=== PATIENT | female | born 1990 | race Caucasian/White ===

== ENCOUNTER 2016-04-15 09:20 | Emergency (ER) | payer BC ==
[~2016-04-15] VITALS: Ht 165.1 cm; Wt 78.0 kg
[~2016-04-15 09:20] MED LIST: ACET1TAB40 PO; CLIN-73 PO; GENT5DRO28 LEFT EYE
[2016-04-15 09:26] VITALS: Ht 165.1 cm; Wt 78.0 kg
[2016-04-15] MEDS ORDERED: SOD CHLORIDE 0.9% 1,000 ML IV STA (10:02)
--- NOTE | 2016-04-15 10:06 | ERD ---
ER Documentation Chief Complaint Date/Time DATE: 04/15/16 Chief Complaint Dysuria HPI The patient is a 25-year-old female who presents to the Emergency Department with complaint of dysuria and left flank pain. She reports that 2 days ago she had gradual onset of left-sided flank pain, dysuria, urinary frequency, urinary urgency and hesitancy. Yesterday, she began to experience tactile fevers and chills, with nausea and one episode of nonbilious, nonbloody emesis. She denies any current nausea, or any further episodes of vomiting. Denies any diarrhea. Denies any black or bloody stools. Denies any dyspareunia or new vaginal discharge. She rates her current pain as 6 out of 10. It is localized to the left flank and suprapubic region of the abdomen. It is pressure-like in nature and does not radiate. The pain is improved with rest, and worsened with palpation and movement. She denies hematuria, or any history of stones. Denies vaginal bleeding. Her last menstrual period ended yesterday. ROS All systems reviewed and are negative except as per history of present illness. Medications Home Meds Active Scripts Acetaminophen* (Tylenol*) 325 Mg Tablet, 1 TAB PO Q6 Y for PAIN AND OR ELEVATED TEMP, #20 TAB Prov:KAMI REDMOND PA-C 04/15/16 Phenazopyridine Hcl* (Pyridium*) 200 Mg Tab, 200 MG PO TID Y for URINARY PAIN for 2 Days, #6 TAB Prov:KAMI REDMOND PA-C 04/15/16 Cephalexin* (Cephalexin*) 500 Mg Capsule, 500 MG PO Q6 for 10 Days, CAP Prov:KAMI REDMOND PA-C 04/15/16 Acetaminophen-Codeine* (Acetaminophen-Cod #3*) 300-30 Mg Tab, 1 TAB PO Q4H Y for PAIN, #10 TAB Prov:ANDREW ALDRICH MD 05/22/15 Clindamycin Hcl* (Clindamycin Hcl*) 300 Mg Capsule, 300 MG PO QID for 7 Days, CAP Prov:ANDREW ALDRICH MD 05/22/15 Gentamicin Sulfate* (Gentamicin Sulfate* Ophth) 0.3% - 5 Ml Drops, 1 DROP LEFT EYE Q4 for 7 Days, EA Prov:ANDREW ALDRICH MD 05/22/15 Allergies Allergies: Coded Allergies: Penicillins (Verified Allergy, Unknown, 05/22/15) Sulfa (Sulfonamide Antibiotics) (Verified Allergy, Unknown, 05/22/15) ibuprofen (Verified Allergy, Unknown, 05/22/15) PMhx/Soc History of Surgery: Yes (BREAST AUGMENTATION ) Hx Alcohol Use: Yes (SOCIALLY ) Hx Substance Use: No Hx Tobacco Use: No Physical Exam Vitals Vital Signs Date Time Temp Pulse Resp B/P Pulse Ox O2 Delivery O2 Flow Rate FiO2 04/15/16 09:26 98.5 118 18 118/74 96 Physical Exam GENERAL: Well-developed, well-nourished, in no acute distress HEENT: Head is normocephalic, atraumatic. No scleral pallor or icterus. Pupils equal, round and reactive to light. Conjunctiva pink. Moist mucous membranes. NECK: Supple. Trachea midline. Full range of motion. RESPIRATORY: Lungs are clear to auscultation bilaterally. Equal breath sounds. Normal expiratory effort. CARDIOVASCULAR: Tachycardic. Regular rhythm. S1 and S2 normal. GASTROINTESTINAL: Abdomen is soft and non-distended. Tenderness to palpation over the suprapubic abdomen. No guarding, no rebound tenderness. Normal bowel sounds. No abdominal bruits. No gross peritonitis. No masses or organomegaly. FLANK: Left-sided CVA tenderness. No masses palpated. No right-sided CVA tenderness. No vesicles/lesions/rashes. BACK: No midline tenderness. EXTREMITIES: No clubbing, cyanosis, or edema. Normal skin perfusion. Moving all extremities. Muscle tone is normal. No focal swelling or erythema. Distal pulses are palpable, 2+ bilaterally. Capillary refill is less than 2 seconds. NEUROLOGIC: The patient is alert, awake, and oriented x 3. No focal neurologic deficits. Gait is observed and normal. There is no ataxia. Speech is normal. INTEGUMENT: Skin is clean, dry and intact. No rashes, lesions or petechiae present. Normal turgor. PSYCHIATRIC: Appropriate; Cooperative. Result Diagram: 04/15/16 1000 04/15/16 1000 Results 24 hrs Laboratory Tests Test 04/15/16 10:00 Alanine Aminotransferase (ALT/SGPT) 69IU/L Albumin 4.2g/dl Albumin/Globulin Ratio 1.07 Alkaline Phosphatase 120IU/L Anion Gap 17 Aspartate Amino Transf (AST/SGOT) 35IU/L Basophils # 0.010^3/ul Basophils % 0.1% Blood Urea Nitrogen 7mg/dl Calcium Level 8.4mg/dl Carbon Dioxide Level 28mmol/L Chloride Level 97mmol/L Creatinine 0.71mg/dl Differential Comment AUTO w/SCAN Direct Bilirubin 0.00mg/dl Eosinophils # 0.010^3/ul Eosinophils % 0.0% Globulin 3.90g/dl Glucose Level 127mg/dl Hematocrit 41.3% Hemoglobin 13.9g/dl Indirect Bilirubin 0.9mg/dl Lipase 26U/L Lymphocytes # 1.710^3/ul Lymphocytes % 8.4% Mean Corpuscular Hemoglobin 30.3pg Mean Corpuscular Hemoglobin Concent 33.6g/dl Mean Corpuscular Volume 90.3fl Mean Platelet Volume 9.1fl Monocytes # 1.110^3/ul Monocytes % 5.4% Neutrophils # 17.110^3/ul Neutrophils % 86.1% Nucleated Red Blood Cells # 0.010^3/ul Nucleated Red Blood Cells % 0.0/100WBC Platelet Count 38817^3/UL Potassium Level 3.4mmol/L Red Blood Count 4.5710^6/ul Red Cell Distribution Width 13.1% Sodium Level 139mmol/L Total Bilirubin 0.9mg/dl Total Protein 8.1g/dl Urine Bacteria MODERATE Urine Bilirubin NEGATIVE Urine Clarity CLEAR Urine Color LT. YELLOW Urine Glucose NEGATIVE% Urine Hemoglobin 3+ Urine Ketones NEGATIVE Urine Leukocyte Esterase 3+ Urine Microscopic RBC 5-10/HPF Urine Microscopic WBC 25-50/HPF Urine Nitrite POSITIVE Urine Specific [place] 1.010 Urine Squamous Epithelial Cells FEW Urine Total Protein 2+ Urine Urobilinogen 0.2 E.U./dL Urine pH 6.0 White Blood Count 19.910^3/ul Current Medications Medications (Trade) Dose Ordered Sig/Maria Elena Route PRN Reason Start Time Stop Time Status Last Admin Dose Admin Sodium Chloride (NS) 1,000 ml @ 1,000 mls/hr Q1H STAT IV 04/15/16 10:02 04/15/16 11:01 DC 04/15/16 10:07 Acetaminophen 650 mg 650 mg ONCE ONCE PO 04/15/16 10:30 04/15/16 10:31 DC 04/15/16 10:07 Ceftriaxone Sodium (Rocephin) 50 ml @ 100 mls/hr ONCE ONCE IVPB 04/15/16 11:00 04/15/16 11:29 DC 04/15/16 10:49 Ondansetron HCl (Zofran Inj) 4 mg ONCE STAT IV 04/15/16 10:52 04/15/16 10:54 DC Procedures/MDM Emergency Department Course: The patient was stable throughout the ER course. Laboratory work was performed. On reassessment, the patient was sitting comfortably with no signs of acute distress. Laboratory results were discussed with the patient, as well as likely diagnosis of pyelonephritis. She was given an injection of 1 g of Rocephin IV, and strict return precautions for signs of worsening condition. The patient's case was discussed with ED supervising physician, Dr. Scott, including patient's presentation, ED course, laboratory values and urinalysis results. Given that the patient is nontoxic in appearance, with no significant immunocompromised state and tolerating POs, he states that patient may be discharged home with antibiotics to follow up as an outpatient. Medical Decision Making: This is a 25-year-old female presenting to the Emergency Department with dysuria, urinary frequency, urgency, hesitancy and left flank pain. On physical examination, the patient had mild tenderness to palpation over the suprapubic abdomen. She had left-sided CVA tenderness. Otherwise, she was nontoxic in appearance, with no evidence of dehydration. She was afebrile. The differential diagnosis includes, but is not limited to, urinary tract infection, renal abscess, perinephric abscess, urethritis, nephrolithiasis, salpingitis, cervicitis, pelvic inflammatory disease, diverticulitis, cystitis, cholecystitis, appendicitis, abdominal aortic aneurysm /dissection, pyelonephritis. Laboratory analysis revealed leukocytosis of 19.9 . No severe anemia requiring transfusion. Electrolytes are within normal limits, no indication for replacement. BUN/creatinine and creatinine are normal , no prerenal azotemia or acute kidney injury. No transaminitis. Urinalysis revealed positive nitrites, 3+ urine leukocyte esterase, 3+ urine hemoglobin, consistent with an infection. Given that the patient presented with recent fevers, chills, dysuria and CVA tenderness, patient's symptoms are most consistent with acute pyelonephritis. She was given an injection of 1 g of Rocephin IV. Urine culture sent. After rest, and administration of medications and serial evaluations, the patient reports no new complaints. She continues to remain stable and nontoxic, with no signs of distress. No significant immunocompromised state, no severe sepsis, no evidence of emphysematous pyelonephritis. The patient is tolerating POs. At this time, the patient is in stable condition, and therefore can be discharged home with a prescription for Keflex, Pyridium, and Tylenol and strict return precautions for signs of deteriorating or worsening condition. The patient is advised to follow up with her primary care provider within 1-2 days for reevaluation and further management, or return to the ER sooner for any worsening symptoms. I shared all laboratory results, medical decision making and plan with the patient at length and in great detail, and the patient verbally understands and agrees with the plan for further observation and care as an outpatient. At the time of discharge, all questions were answered. Departure Diagnosis: Primary Impression: Acute pyelonephritis Additional Impression: Left flank pain Condition: Stable Patient Instructions: Pyelonephritis, Pyelonephritis, Female (Adult) Additional Instructions: Follow up with your primary medical provider in 1-2 days for reevaluation and further management. Return to the ED sooner for any new or worsening symptoms. KAMI REDMOND PA-C Apr 15, 2016 10:06
[2016-04-15 10:25] LABS: BASOPHILS % 0.1 % (0.0-2.0); HEMATOCRIT 41.3 % (37.0-47.0); HEMOGLOBIN 13.9 g/dl (12.0-16.0); LYMPHOCYTES # 1.7 10^3/ul (0.8-2.9); LYMPHOCYTES % 8.4 % (15.0-51.0); MEAN CORPUSCULAR HEMOGLOBIN 30.3 pg (29.0-33.0); MEAN CORPUSCULAR HGB CONC 33.6 g/dl (32.0-37.0); MEAN CORPUSCULAR VOLUME 90.3 fl (82.0-101.0); MEAN PLATELET VOLUME 9.1 fl (7.4-10.4); MONOCYTE # 1.1 10^3/ul (0.3-0.9); MONOCYTES % 5.4 % (0.0-11.0); NEUTROPHIL # 17.1 10^3/ul (1.6-7.5); NEUTROPHILS % 86.1 % (39.0-77.0); PLATELET COUNT 214 10^3/UL (140-440); RED BLOOD COUNT 4.57 10^6/ul (4.20-5.40); RED CELL DISTRIBUTION WIDTH 13.1 % (11.5-14.5); UNCORRECTED WBC 19.9 10^3/ul (4.8-10.8); WHITE BLOOD COUNT 19.9 10^3/ul (4.8-10.8)
[2016-04-15 10:27] LABS: ADD UMIC YES; URINE BILIRUBIN (Dip) NEGATIVE (NEGATIVE); URINE BLOOD (Dip) 3+ (NEGATIVE); URINE COLOR LT. YELLOW (YELLOW); URINE GLUCOSE (Dip) NEGATIVE (NEGATIVE); URINE KETONES (Dip) NEGATIVE (NEGATIVE); URINE LEUKOCYTE ESTERASE (Dip) 3+ (NEGATIVE); URINE NITRITE (Dip) POSITIVE (NEGATIVE); URINE TOTAL PROTEIN (Dip) 2+ (NEGATIVE); URINE UROBILINOGEN (Dip) 0.2 E.U./dL (0.1-1.0)
[2016-04-15] MEDS ORDERED: ACETAMINOPHEN 325 MG TAB PO ONE (10:30)
[2016-04-15 10:33] LABS: CONDITION 1; LH ANALYZER COMMENTS 1; SUSPECT 1
[2016-04-15 10:36] LABS: ALBUMIN 4.2 g/dl (3.3-4.9)
[2016-04-15 10:37] LABS: POTASSIUM 3.4 mmol/L (3.5-5.1)
[2016-04-15 10:39] LABS: ALBUMIN/GLOBULIN RATIO 1.07; BACTERIA,URINE MODERATE; BILIRUBIN,INDIRECT 0.9 mg/dl (0-1.1); BILIRUBIN,TOTAL 0.9 mg/dl (0.2-1.3); CREATININE 0.71 mg/dl (0.44-1.00); TOTAL PROTEIN 8.1 g/dl (6.1-8.1)
[2016-04-15 10:40] LABS: CALCIUM 8.4 mg/dl (8.4-10.2); SQUAMOUS EPITHELIAL CELL,UR FEW
[2016-04-15] MEDS ORDERED: ONDANSETRON 4 MG INJ IV STA (10:52)
[2016-04-15] MEDS ORDERED: CEFTRIAXONE 1 GM/50 ML (PMX) 50 ML IVPB ONE (11:00)
[2016-04-15] MEDS ORDERED: CEPH500C PO (11:45)
[2016-04-15] MEDS ORDERED: PHEN-538 PO (11:45)
[2016-04-15] MEDS ORDERED: ACET325T33 PO (11:46)
== END 2016-04-15 12:07 | disposition home or self-care (01) ==
LOC: FTE 09:20
DX: N10 Acute pyelonephritis (principal); R10.30 Lower abdominal pain, unspecified
CPT/HCPCS: 36415; 80053; 81001; 83690; 85025; 87086; 96374; J0696; J2405; J7030; Z7502; Z7610; 81003

== ENCOUNTER 2016-04-28 18:08 | Emergency (ER) | payer BC ==
[~2016-04-28] VITALS: Ht 165.1 cm; Wt 80.5 kg
[~2016-04-28 18:08] MED LIST changes: +ACET325T33 PO; +CEPH500C PO; +PHEN-538 PO
[2016-04-28 18:47] VITALS: Ht 165.1 cm; Wt 80.5 kg
[2016-04-28] MEDS ORDERED: SOD CHLORIDE 0.9% 1,000 ML IV STA (19:41)
[2016-04-28 19:51] LABS: ADD UMIC YES; URINE BILIRUBIN (Dip) NEGATIVE (NEGATIVE); URINE BLOOD (Dip) NEGATIVE (NEGATIVE); URINE COLOR LT. YELLOW (YELLOW); URINE GLUCOSE (Dip) NEGATIVE (NEGATIVE); URINE KETONES (Dip) NEGATIVE (NEGATIVE); URINE LEUKOCYTE ESTERASE (Dip) 3+ (NEGATIVE); URINE NITRITE (Dip) NEGATIVE (NEGATIVE); URINE TOTAL PROTEIN (Dip) NEGATIVE (NEGATIVE); URINE UROBILINOGEN (Dip) 0.2 E.U./dL (0.1-1.0)
[2016-04-28 19:52] LABS: BASOPHIL # 0.1 10^3/ul (0.0-0.1); BASOPHILS % 0.6 % (0.0-2.0); CONDITION 1; EOSINOPHILS # 0.1 10^3/ul (0.0-0.5); EOSINOPHILS % 0.6 % (0.0-7.0); HEMATOCRIT 41.9 % (37.0-47.0); HEMOGLOBIN 14.2 g/dl (12.0-16.0); LYMPHOCYTES # 2.4 10^3/ul (0.8-2.9); LYMPHOCYTES % 25.5 % (15.0-51.0); MEAN CORPUSCULAR HEMOGLOBIN 30.5 pg (29.0-33.0); MEAN CORPUSCULAR HGB CONC 33.8 g/dl (32.0-37.0); MEAN CORPUSCULAR VOLUME 90.1 fl (82.0-101.0); MEAN PLATELET VOLUME 8.2 fl (7.4-10.4); MONOCYTE # 0.8 10^3/ul (0.3-0.9); MONOCYTES % 8.5 % (0.0-11.0); NEUTROPHIL # 6.1 10^3/ul (1.6-7.5); NEUTROPHILS % 64.8 % (39.0-77.0); PLATELET COUNT 340 10^3/UL (140-440); RED BLOOD COUNT 4.65 10^6/ul (4.20-5.40); RED CELL DISTRIBUTION WIDTH 13.2 % (11.5-14.5); UNCORRECTED WBC 9.4 10^3/ul (4.8-10.8); WHITE BLOOD COUNT 9.4 10^3/ul (4.8-10.8)
[2016-04-28 19:54] LABS: ALBUMIN 4.3 g/dl (3.3-4.9)
[2016-04-28 19:55] LABS: POTASSIUM 4.2 mmol/L (3.5-5.1)
[2016-04-28 19:57] LABS: ALBUMIN/GLOBULIN RATIO 1.1; BILIRUBIN,INDIRECT 0.2 mg/dl (0-1.1); BILIRUBIN,TOTAL 0.2 mg/dl (0.2-1.3); CREATININE 0.73 mg/dl (0.44-1.00); TOTAL PROTEIN 8.2 g/dl (6.1-8.1)
[2016-04-28 20:02] LABS: BACTERIA,URINE FEW; SQUAMOUS EPITHELIAL CELL,UR MODERATE; URINE RBCS 0-2 /HPF (0)
--- NOTE | 2016-04-28 20:04 | ERD ---
ER Documentation Chief Complaint Date/Time DATE: 04/28/16 TIME: 20:02 Chief Complaint LLQ ABD. PAIN RADIATING TO LT FLANK X 2 WKS HPI This is a 25-year-old female presents to the emergency room for evaluation of left-sided flank pain for the past 2 weeks. This patient does state that she was seen in the emergency room and was treated for a urinary tract infection which spread up to her kidneys. The patient states that she was on Keflex and finished a course of Keflex however she is still continuing to have pain. She denies any fevers, or chills and came to the ER today for evaluation. ROS All systems reviewed and are negative except as per history of present illness. Medications Home Meds Active Scripts Acetaminophen* (Tylenol*) 325 Mg Tablet, 1 TAB PO Q6 Y for PAIN AND OR ELEVATED TEMP, #20 TAB Prov:KAMI REDMOND PA-C 04/15/16 Phenazopyridine Hcl* (Pyridium*) 200 Mg Tab, 200 MG PO TID Y for URINARY PAIN for 2 Days, #6 TAB Prov:KAMI REDMOND PA-C 04/15/16 Cephalexin* (Cephalexin*) 500 Mg Capsule, 500 MG PO Q6 for 10 Days, CAP Prov:KAMI REDMOND PA-C 04/15/16 Acetaminophen-Codeine* (Acetaminophen-Cod #3*) 300-30 Mg Tab, 1 TAB PO Q4H Y for PAIN, #10 TAB Prov:ANDREW ALDRICH MD 05/22/15 Clindamycin Hcl* (Clindamycin Hcl*) 300 Mg Capsule, 300 MG PO QID for 7 Days, CAP Prov:ANDREW ALDRICH MD 05/22/15 Gentamicin Sulfate* (Gentamicin Sulfate* Ophth) 0.3% - 5 Ml Drops, 1 DROP LEFT EYE Q4 for 7 Days, EA Prov:ANDREW ALDRICH MD 05/22/15 Allergies Allergies: Coded Allergies: Penicillins (Verified Allergy, Unknown, 05/22/15) Sulfa (Sulfonamide Antibiotics) (Verified Allergy, Unknown, 05/22/15) ibuprofen (Verified Allergy, Unknown, 05/22/15) PMhx/Soc History of Surgery: Yes (BREAST AUGMENTATION ) Anesthesia Reaction: No Hx Neurological Disorder: No Hx Respiratory Disorders: No Hx Cardiac Disorders: No Hx Psychiatric Problems: No Hx Miscellaneous Medical Probl: Yes (UTI and "kidney infection") Hx Alcohol Use: Yes (SOCIALLY ) Hx Substance Use: No Hx Tobacco Use: Yes Smoking Status: Light tobacco smoker Physical Exam Vitals Vital Signs Date Time Temp Pulse Resp B/P Pulse Ox O2 Delivery O2 Flow Rate FiO2 04/28/16 18:47 99.0 113 18 121/74 98 Physical Exam INITIAL VITAL SIGNS: Reviewed by me GENERAL: The patient is well developed and appropriate for usual state of health in no apparent distress HEENT: Pupils equal, round, and reactive to light. EOMI. There is no scleral icterus. NECK: C-spine is soft and supple, there is no meningismus. There is no cervical lymphadenopathy. LUNGS: Clear to auscultation bilaterally. There are no rales, wheezes or rhonchi. HEART: Regular rate and rhythm, no murmurs, clicks, rubs or gallops. ABDOMEN: Left-sided CVAT, otherwise soft, non-tender, non-distended. There are bowel sounds in all four quadrants. No rebound or guarding. EXTREMITIES: There is no peripheral cyanosis or edema. No focal swelling or erythema. NEUROLOGICAL: The patient moves all four extremities with 5/5 strength. Cranial nerves II - XII are intact. Normal gait. Alert and oriented SKIN: There is no apparent rash or petechiae. HEME/LYMPHATIC: There is no evidence of excessive bruising or lymphedema. PSYCHIATRIC: The patient does not appear anxious or depressed. Result Diagram: 04/28/16193904/28/161939 Results 24 hrs Laboratory Tests Test 04/28/16 19:40 Alanine Aminotransferase (ALT/SGPT) 104IU/L Albumin 4.3g/dl Albumin/Globulin Ratio 1.10 Alkaline Phosphatase 118IU/L Anion Gap 16 Aspartate Amino Transf (AST/SGOT) 67IU/L Basophils # 0.110^3/ul Basophils % 0.6% Blood Urea Nitrogen 8mg/dl Calcium Level 9.0mg/dl Carbon Dioxide Level 30mmol/L Chloride Level 101mmol/L Creatinine 0.73mg/dl Direct Bilirubin 0.00mg/dl Eosinophils # 0.110^3/ul Eosinophils % 0.6% Globulin 3.90g/dl Glucose Level 91mg/dl Hematocrit 41.9% Hemoglobin 14.2g/dl Indirect Bilirubin 0.2mg/dl Lipase 41U/L Lymphocytes # 2.410^3/ul Lymphocytes % 25.5% Mean Corpuscular Hemoglobin 30.5pg Mean Corpuscular Hemoglobin Concent 33.8g/dl Mean Corpuscular Volume 90.1fl Mean Platelet Volume 8.2fl Monocytes # 0.810^3/ul Monocytes % 8.5% Neutrophils # 6.110^3/ul Neutrophils % 64.8% Nucleated Red Blood Cells # 0.010^3/ul Nucleated Red Blood Cells % 0.0/100WBC Platelet Count 62835^3/UL Potassium Level 4.2mmol/L Red Blood Count 4.6510^6/ul Red Cell Distribution Width 13.2% Sodium Level 143mmol/L Total Bilirubin 0.2mg/dl Total Protein 8.2g/dl Urine Bilirubin NEGATIVE Urine Clarity CLEAR Urine Color LT. YELLOW Urine Glucose NEGATIVE% Urine Hemoglobin NEGATIVE Urine Ketones NEGATIVE Urine Leukocyte Esterase 3+ Urine Microscopic RBC Pending Urine Microscopic WBC Pending Urine Nitrite NEGATIVE Urine Test NEGATIVE Urine Specific [place] 1.020 Urine Total Protein NEGATIVE Urine Urobilinogen 0.2 E.U./dL Urine pH 6.5 White Blood Count 9.410^3/ul Current Medications Medications (Trade) Dose Ordered Sig/Maria Elena Route PRN Reason Start Time Stop Time Status Last Admin Dose Admin Sodium Chloride (NS) 1,000 ml @ 1,000 mls/hr Q1H STAT IV 04/28/16 19:41 04/28/16 19:45 DC Procedures/MDM This 25-year-old female presents to the ER for evaluation of left-sided flank pain. I did look up her previous ER visit and it appears that she was treated for pyelonephritis with Rocephin in the emergency room, and Keflex as an outpatient. This patient's urine cultures show sensitivity to ciprofloxacin. This patient was given ciprofloxacin here in the emergency room, will be discharged home with a prescription for ciprofloxacin. She has no leukocytosis , she is afebrile, urinating okay and hCG is negative. No signs of systemic infection at this time. She will be discharged home. Departure Diagnosis: Primary Impression: Acute cystitis Condition: Stable ISIS PIMENTEL DO Apr 28, 2016 20:04
[2016-04-28] MEDS ORDERED: CIPR500T4 PO (20:05)
[2016-04-28 20:22] VITALS: BP 116/80; PULSE 91; RESP 18; TEMP 98.2
[2016-04-28] MEDS ORDERED: CIPROFLOXACIN 500 MG TAB PO ONE (20:30)
== END 2016-04-28 20:27 | disposition home or self-care (01) ==
LOC: FTE 18:08
DX: N30.00 Acute cystitis without hematuria (principal); F17.210 Nicotine dependence, cigarettes, uncomplicated
CPT/HCPCS: 36415; 80053; 81001; 83690; 84703; 85025; Z7502; Z7610; 81003; 99283; J7030

== ENCOUNTER 2016-09-01 17:53 | Emergency (ER) | payer BC ==
[~2016-09-01] VITALS: Ht 157.5 cm; Wt 83.0 kg
[~2016-09-01 17:53] MED LIST changes: +CIPR500T4 PO
[2016-09-01 18:01] VITALS: Ht 157.5 cm; Wt 83.0 kg
[2016-09-01] MEDS ORDERED: ACETAMINOPHEN 325 MG TAB PO STA (18:19)
[2016-09-01 18:55] LABS: ADD SCAN DIFF NO
[2016-09-01 18:59] LABS: BASOPHILS % 0.2 % (0.0-2.0); EOSINOPHILS % 0.3 % (0.0-7.0); HEMATOCRIT 39.6 % (37.0-47.0); HEMOGLOBIN 13.3 g/dl (12.0-16.0); LYMPHOCYTES # 1.9 10^3/ul (0.8-2.9); LYMPHOCYTES % 16.1 % (15.0-51.0); MEAN CORPUSCULAR HEMOGLOBIN 30.1 pg (29.0-33.0); MEAN CORPUSCULAR HGB CONC 33.6 g/dl (32.0-37.0); MEAN CORPUSCULAR VOLUME 89.6 fl (82.0-101.0); MEAN PLATELET VOLUME 11.4 fl (7.4-10.4); MONOCYTE # 0.5 10^3/ul (0.3-0.9); MONOCYTES % 4.2 % (0.0-11.0); NEUTROPHIL # 9.4 10^3/ul (1.6-7.5); NEUTROPHILS % 78.6 % (39.0-77.0); PLATELET COUNT 229 10^3/UL (140-415); RED BLOOD COUNT 4.42 10^6/ul (4.20-5.40); RED CELL DISTRIBUTION WIDTH 13.3 % (11.5-14.5); WHITE BLOOD COUNT 11.9 10^3/ul (4.8-10.8)
[2016-09-01 19:02] LABS: ADD UMIC YES; URINE BILIRUBIN (Dip) NEGATIVE (NEGATIVE); URINE BLOOD (Dip) NEGATIVE (NEGATIVE); URINE COLOR YELLOW (YELLOW); URINE GLUCOSE (Dip) NEGATIVE (NEGATIVE); URINE KETONES (Dip) 40 (NEGATIVE); URINE LEUKOCYTE ESTERASE (Dip) 1+ (NEGATIVE); URINE NITRITE (Dip) NEGATIVE (NEGATIVE); URINE TOTAL PROTEIN (Dip) NEGATIVE (NEGATIVE); URINE UROBILINOGEN (Dip) 0.2 E.U./dL (0.1-1.0)
[2016-09-01 19:14] LABS: ALBUMIN 3.9 g/dl (3.3-4.9); POTASSIUM 3.4 mmol/L (3.5-5.1)
[2016-09-01 19:16] LABS: BILIRUBIN,INDIRECT 0.3 mg/dl (0-1.1); BILIRUBIN,TOTAL 0.3 mg/dl (0.2-1.3); CREATININE 0.56 mg/dl (0.44-1.00)
[2016-09-01 19:17] LABS: ALBUMIN/GLOBULIN RATIO 1.02; TOTAL PROTEIN 7.7 g/dl (6.1-8.1)
[2016-09-01 19:18] LABS: CALCIUM 9.1 mg/dl (8.4-10.2)
[2016-09-01 19:19] LABS: BACTERIA,URINE MANY; SQUAMOUS EPITHELIAL CELL,UR MANY; URINE RBCS NONE SEEN /HPF (0)
--- NOTE | 2016-09-01 19:19 | RADRPT ---
PROCEDURE: US OB. CLINICAL INDICATION: Size and dates , pain TECHNIQUE: Multiple sonographic images of the pelvis and gravid uterus were obtained. The images were reviewed on a PACS workstation. COMPARISON: No prior studies are available for comparison. FINDINGS: There is a single viable intrauterine gestation. Cardiac activity is present with 165 beats per min [place]. There is a vertex presentation. The placenta is anterior. There is no evidence for an abruption or placenta previa. There is a normal amount of amniotic fluid with a MVP= 5.1 cm. Measurements were made in order to determine age. The results are as follows: BPD =4.9 cm HC =18.9 cm AC =16.8 cm FL =3.5 cm Estimated gestational age of approximately 21 weeks and 1 day based on ultrasound measurements. Clinical age: 20 weeks and 5 days. The estimated date of delivery is 01/11/17, based on ultrasound measurements. The EFW = 420 g, 80.7%, based on LMP age. RPTAT: AA IMPRESSION: Single viable intrauterine gestation of approximately 21 weeks and 1 days based on ultrasound measu rements. .Alex Sanchez MD, MD Date Time Electronically viewed and signed by .Alex Sanchez MD, on 09/01/2016 19:18 .S/
[2016-09-01] MEDS ORDERED: NITR-58 PO (20:03)
[2016-09-01] MEDS ORDERED: TYL500 PO (20:04)
[2016-09-01] MEDS ORDERED: ONDA4TAB8 PO (20:15)
[2016-09-01 20:17] VITALS: BP 116/78; PULSE 103; RESP 16; TEMP 98.6
--- NOTE | 2016-09-01 20:35 | ERD ---
ER Documentation Chief Complaint Date/Time DATE: 09/01/16 TIME: 20:32 Chief Complaint has ap is 19 weeks possible 20 weeks and 5 days and fournier HPI This is a 25-year-old female that presents to the ER with pelvic cramping. Last night. Patient also complaining of a left-sided headache with opiate. She denies any nausea vomiting or diarrhea. Patient denies any chest pain or shortness of breath. She denies any fevers or chills. She denies urinary frequency or dysuria. Patient did have Tylenol nephritis that beginning of this . A0. Patient denies any vaginal bleeding or vaginal discharge. ROS 12 point review of systems was done, all negative except per HPI. Medications Home Meds Active Scripts Ondansetron Hcl* (Zofran*) 4 Mg Tablet, 4 MG PO Q6H for NAUSEA AND/OR VOMITING, #30 TAB Prov:GLENN CARVAJAL 09/01/16 Acetaminophen* (Tylenol*) 500 Mg Tab, 500 MG PO Q4H Y for MILD PAIN LEVEL 1-3 for 3 Days, TAB Prov:GLENN CARVAJAL 09/01/16 Nitrofurantoin Monohyd Macrocr* (Macrobid*) 100 Mg Capsr, 100 MG PO BID for 7 Days, CAP Prov:GLENN CARVAJAL 09/01/16 Ciprofloxacin Hcl* (Ciprofloxacin Hcl*) 500 Mg Tablet, 500 MG PO BID, #14 TAB Prov:ISIS PIMENTEL DO 04/28/16 Acetaminophen* (Tylenol*) 325 Mg Tablet, 1 TAB PO Q6 Y for PAIN AND OR ELEVATED TEMP, #20 TAB Prov:KAMI REDMOND PA-C 04/15/16 Phenazopyridine Hcl* (Pyridium*) 200 Mg Tab, 200 MG PO TID Y for URINARY PAIN for 2 Days, #6 TAB Prov:KAMI REDMOND PA-C 04/15/16 Cephalexin* (Cephalexin*) 500 Mg Capsule, 500 MG PO Q6 for 10 Days, CAP Prov:KAMI REDMOND PA-C 04/15/16 Acetaminophen-Codeine* (Acetaminophen-Cod #3*) 300-30 Mg Tab, 1 TAB PO Q4H Y for PAIN, #10 TAB Prov:ANDREW ALDRICH MD 05/22/15 Clindamycin Hcl* (Clindamycin Hcl*) 300 Mg Capsule, 300 MG PO QID for 7 Days, CAP Prov:ANDREW ALDRICH MD 05/22/15 Gentamicin Sulfate* (Gentamicin Sulfate* Ophth) 0.3% - 5 Ml Drops, 1 DROP LEFT EYE Q4 for 7 Days, EA Prov:ANDREW ALDRICH MD 05/22/15 Allergies Allergies: Coded Allergies: Penicillins (Verified Allergy, Unknown, 05/22/15) Sulfa (Sulfonamide Antibiotics) (Verified Allergy, Unknown, 05/22/15) ibuprofen (Verified Allergy, Unknown, 05/22/15) PMhx/Soc Medical and Surgical Hx: pt denies Medical Hx History of Surgery: Yes (BREAST AUGMENTATION ) Anesthesia Reaction: No Hx Neurological Disorder: No Hx Respiratory Disorders: No Hx Cardiac Disorders: No Hx Psychiatric Problems: No Hx Miscellaneous Medical Probl: Yes (UTI and "kidney infection") Hx Alcohol Use: Yes (SOCIALLY ) Hx Substance Use: No Hx Tobacco Use: Yes Smoking Status: Never smoker Physical Exam Vitals Vital Signs Date Time Temp Pulse Resp B/P Pulse Ox O2 Delivery O2 Flow Rate FiO2 09/01/16 20:17 98.6 103 16 116/78 100 Room Air 09/01/16 18:01 98.6 112 18 117/74 97 Physical Exam GENERAL: The patient is well developed and appropriate for usual state of health , in no apparent distress. HEENT: Atraumatic. CHEST: Clear to auscultation bilaterally. There are no rales, wheezes or rhonchi. HEART: Regular rate and rhythm. No murmurs, clicks, rubs or gallops. ABDOMEN: Soft, nontender and nondistended. Good bowel sounds. No rebound or guarding. No gross peritonitis. No gross organomegaly or masses. No Messer sign or McBurney point tenderness. BACK: No midline or flank tenderness. NEURO: Alert and oriented. Cranial nerves II through XII are intact. Motor strength in all 4 extremities with 5/5 strength. Sensation grossly intact. Normal speech and gait. SKIN: There is no apparent rash or petechia. The skin is warm and dry. Result Diagram: 09/01/16 1840 09/01/16 1840 Results 24 hrs Laboratory Tests Test 09/01/16 18:20 09/01/16 18:40 Urine Color YELLOW Urine Clarity CLOUDY Urine pH 6.0 Urine Specific [place] >=1.030 Urine Ketones 40 Urine Nitrite NEGATIVE Urine Bilirubin NEGATIVE Urine Urobilinogen 0.2 E.U./dL Urine Leukocyte Esterase 1+ Urine Microscopic RBC NONE SEEN/HPF Urine Microscopic WBC 2-5/HPF Urine Squamous Epithelial Cells MANY Urine Bacteria MANY Urine Hemoglobin NEGATIVE Urine Glucose NEGATIVE% Urine Total Protein NEGATIVE White Blood Count 11.910^3/ul Red Blood Count 4.4210^6/ul Hemoglobin 13.3g/dl Hematocrit 39.6% Mean Corpuscular Volume 89.6fl Mean Corpuscular Hemoglobin 30.1pg Mean Corpuscular Hemoglobin Concent 33.6g/dl Red Cell Distribution Width 13.3% Platelet Count 97450^3/UL Mean Platelet Volume 11.4fl Neutrophils % 78.6% Lymphocytes % 16.1% Monocytes % 4.2% Eosinophils % 0.3% Basophils % 0.2% Nucleated Red Blood Cells % 0.0/100WBC Neutrophils # 9.410^3/ul Lymphocytes # 1.910^3/ul Monocytes # 0.510^3/ul Eosinophils # 0.010^3/ul Basophils # 0.010^3/ul Nucleated Red Blood Cells # 0.010^3/ul Sodium Level 139mmol/L Potassium Level 3.4mmol/L Chloride Level 103mmol/L Carbon Dioxide Level 22mmol/L Anion Gap 17 Blood Urea Nitrogen 8mg/dl Creatinine 0.56mg/dl Glucose Level 121mg/dl Calcium Level 9.1mg/dl Total Bilirubin 0.3mg/dl Direct Bilirubin 0.00mg/dl Indirect Bilirubin 0.3mg/dl Aspartate Amino Transf (AST/SGOT) 22IU/L Alanine Aminotransferase (ALT/SGPT) 31IU/L Alkaline Phosphatase 85IU/L Total Protein 7.7g/dl Albumin 3.9g/dl Globulin 3.80g/dl Albumin/Globulin Ratio 1.02 Beta HCG, Quantitative 96784.0mIU/ml Current Medications Medications (Trade) Dose Ordered Sig/Maria Elena Route PRN Reason Start Time Stop Time Status Last Admin Dose Admin Acetaminophen (Tylenol Tab) 650 mg ONCE STAT PO 09/01/16 18:19 09/01/16 18:21 DC 09/01/16 18:36 Procedures/MDM This is a 25-year-old female presents to the ER with pelvic cramping and a headache. At this time appears to be normal. There is no evidence of placenta previa or placenta abruptio. Patient does have a headache tract infection with which may be causing pelvic cramping and headache. Suspicion for pyelonephritis is low. Patient does not have any CVA tenderness, nausea, vomiting. Suspicion for acute intracranial pathology is low, patient is neurologically intact with no focal neurological deficits. Patient does not have any meningeal signs and she is nontoxic-appearing. She is afebrile and well -appearing. Patient will be sent home with Macrobid, Zofran, Tylenol. She is to follow-up with her primary care doctor within 1-2 days or return to ER sooner symptoms worsen. My medical decision making was shared with the patient she understands and agrees with plan. Departure Diagnosis: Primary Impression: UTI (urinary tract infection) Condition: Stable Patient Instructions: Understanding Urinary Tract Infections (UTIs) Additional Instructions: Call your primary care doctor TOMORROW for an appointment during the next 1-2 days.See the doctor sooner or return here if your condition worsens before your appointment time. GLENN CARVAJAL September 01, 2016 20:35
== END 2016-09-01 20:18 | disposition home or self-care (01) ==
LOC: E/R 17:53 → FTE 20:18
DX: O23.42 Unspecified infection of urinary tract in pregnancy, second trimester (principal); R10.2 Pelvic and perineal pain
CPT/HCPCS: 36415; 76805; 80053; 81001; 84702; 85025; Z7502; Z7610

== ENCOUNTER 2016-09-30 10:29 | Emergency (ER) | payer BC ==
[~2016-09-30] VITALS: Ht 157.5 cm; Wt 83.5 kg
[~2016-09-30 10:29] MED LIST changes: +NITR-58 PO; +ONDA4TAB8 PO; +TYL500 PO
[2016-09-30 10:41] VITALS: Ht 157.5 cm; Wt 83.5 kg
[2016-09-30] MEDS ORDERED: ACETAMINOPHEN 325 MG TAB PO ONE (11:30)
--- NOTE | 2016-09-30 11:54 | RADRPT ---
PROCEDURE: Left hand series CLINICAL INDICATION: Left hand pain. Left fifth digit pain TECHNIQUE: Three views of the left hand were obtained. COMPARISON: No prior studies are available for comparison. FINDINGS: There is normal mineralization and alignment of the bones of the left hand. There is a questionable subtle nondisplaced fracture of the distal aspect of the fifth proximal phalanx. This is manifest by subtle questionable cortical step-off. Joint spaces are well maintained. There is no evidence o f osteophyte formation or erosions. There is mild soft tissue swelling of the fifth digit.. IMPRESSION: 1. Questionable nondisplaced fracture of the distal aspect of the fifth proximal phalanx. Recommend correlation with history of trauma and point tenderness. RPTAT: KK .Ranjit Mcdonald MD, Date Time Electronically viewed and signed by .Ranjit Mcdonald MD, on 09/30/2016 11:53 .B/
[2016-09-30] MEDS ORDERED: TYL500 PO (13:01)
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
== END 2016-09-30 13:26 | disposition home or self-care (01) ==
LOC: FTE 10:29
DX: S62.617A Displaced fracture of proximal phalanx of left little finger, initial encounter for closed fracture (principal); W50.1XXA Accidental kick by another person, initial encounter; Y92.9 Unspecified place or not applicable; Z87.891 Personal history of nicotine dependence
CPT/HCPCS: 73130; Z7502; Z7610

== ENCOUNTER 2017-06-22 10:33 | Emergency (ER) | END 2017-06-22 14:03 | disposition home or self-care (01) ==

== ENCOUNTER 2017-12-12 11:54 | Emergency (ER) | END 2017-12-12 14:13 | disposition home or self-care (01) ==

== ENCOUNTER 2018-01-03 10:52 | Emergency (ER) | END 2018-01-03 13:42 | disposition home or self-care (01) ==